=== PATIENT | male | born 1955 | race Caucasian/White ===

== ENCOUNTER 2024-03-11 09:47 | Outpatient (OUT) | payer OTHER, SELFPAY ==
--- NOTE | 2024-03-11 09:59 | XR_ITS ---
[address] [address] Patient Name: ANN STORY MRN: [id number] date: 1955 Sex: M Assigned Patient Location: [facility] Current Patient Location: [facility] Accession/Order Number: [id number] Exam Date: 03/11/2024 10:44 Report Date: 03/11/2024 12:47 At the request of: STEVEN ADORNO Procedure: XR chest 2V EXAMINATION: XR chest 2V HISTORY: Preop exam COMPARISON: No relevant comparison available. TECHNIQUE: PA and lateral FINDINGS: LUNGS: No significant pulmonary parenchymal abnormalities. VASCULATURE: No increased pulmonary vasculature. PLEURA: No pneumothorax, effusion, or pleural thickening. CARDIAC: No cardiomegaly or cardiac silhouette abnormality. MEDIASTINUM: No visible mass or adenopathy. Left pacemaker. Median sternotomy wires BONES: Mild degenerative disc disease and spondylosis without visible acute abnormalities. OTHER: Axillary surgical clips XR/XR chest 2V IMPRESSION: No acute cardiopulmonary process Electronically authenticated by: TEVIN VAUGHN Date: 03/11/2024 12:47
--- NOTE | 2024-03-11 09:59 | ECG_ITS ---
[facility] [place] Test Date: 2024-03-11 Pat Name: ANN STORY Department: Room: - Gender: Male [employer]: : 1955 Requested By: STEVEN ADORNO Order Number: [id number] Reading MD: ELISSA WILLIAM Measurements Intervals [place] Rate: 61 P: 180 IA: 240 QRS: -58 QRSD: 155 T: 123 QT: 385 QTc: 388 Interpretive Statements ELECTRONIC ATRIAL PACEMAKER MARKED LEFT AXIS DEVIATION [QRS AXIS < -30] INTRAVENTRICULAR CONDUCTION DELAY [130+ ms QRS DURATION] No previous ECG available for comparison Electronically Signed On 03-12-2024 7:40:03 EDT by ELISSA WILLIAM
--- NOTE | 2024-03-11 10:50 | P.GSHP_ITS ---
History of Present Illness History of Present Illness Chief complaint: elevated psa. prostate lesion Narrative: Patient presents for preadmission testing. The patient states he had an elevated PSA and is now scheduled for a prostate biopsy. The patient states he does have mild nocturia but denies any other urinary complaints and has no dysuria, hematuria, fever, abdominal pain, nausea, vomiting, or any other complaints. Despite a past medical history of RI x 2, CABG in 2001, and pacer/ICD insertion last year, the patient states he goes to the gym and works out every day and has no episodes of chest pain or dyspnea on exertion. Review of Systems ROS Narrative REVIEW OF SYSTEMS: Negative except as stated in HPI, ten or more systems reviewed. Constitutional: No fever, chills, weakness ENT: No sore throat or epistaxis Cardiovascular: No edema, chest pain, palpitations, or activity intolerance Respiratory: No shortness of breath, cough, or wheezing Musculoskeletal: No joint pain or swelling Gastrointestinal: No abdominal pain, constipation, diarrhea, or vomiting Genitourinary: No dysuria or hematuria Neurological: No numbness, tingling, weakness, or headache Psychiatric: No mood changes PFSH PFS Medical History (Updated 03/11/24 @ 10:26 by Amparo Contreras NP) Ischemic cardiomyopathy ?I25.5 - Ischemic cardiomyopathy (ICD-10) Knee pain ?M25.569 - Pain in unspecified knee (ICD-10) Osteoarthritis ?M19.90 - Unspecified osteoarthritis, unspecified site (ICD-10) Arthritis ?M19.90 - Unspecified osteoarthritis, unspecified site (ICD-10) ICD (implantable cardioverter-defibrillator) in place ?Z95.810 - Presence of automatic (implantable) cardiac defibrillator (ICD-10) COVID-19 ?U07.1 - COVID-19 (ICD-10) BPH (benign prostatic hyperplasia) ?N40.0 - Benign prostatic hyperplasia without lower urinary tract symptoms (ICD-10) Erectile dysfunction ?N52.9 - Male erectile dysfunction, unspecified (ICD-10) Melanoma ?C43.9 - Malignant melanoma of skin, unspecified (ICD-10) GERD (gastroesophageal reflux disease) ?K21.9 - Gastro-esophageal reflux disease without esophagitis (ICD-10) Hearing loss ?H91.90 - Unspecified hearing loss, unspecified ear (ICD-10) Myocardial infarction ?I21.9 - Acute myocardial infarction, unspecified (ICD-10) Hypertension ?I10 - Essential (primary) hypertension (ICD-10) High cholesterol ?E78.00 - Pure hypercholesterolemia, unspecified (ICD-10) Congestive heart failure ?I50.9 - Heart failure, unspecified (ICD-10) Diabetes ?E11.9 - Type 2 diabetes mellitus without complications (ICD-10) Prostate mass ?N42.89 - Other specified disorders of prostate (ICD-10) Elevated PSA ?R97.20 - Elevated prostate specific antigen [PSA] (ICD-10) Pacemaker ?Z95.0 - Presence of cardiac pacemaker (ICD-10) Surgical History (Updated 03/11/24 @ 10:26 by Amparo Contreras NP) Status post surgical removal of malignant neoplasm of skin ?Z98.890 - Other specified postprocedural states (ICD-10) Hx of CABG ?Z95.1 - Presence of aortocoronary bypass graft (ICD-10) History of colonoscopy ?Z98.890 - Other specified postprocedural states (ICD-10) History of arthroscopy of knee ?Z98.890 - Other specified postprocedural states (ICD-10) History of cholecystectomy ?Z90.49 - Acquired absence of other specified parts of digestive tract (ICD- 10) Social History (Updated 03/11/24 @ 10:16 by Amparo Contreras NP) Within the past year, how often did you have a drink containing alcohol: monthly or less Smoking status: Never smoker Non-prescribed substance use: denies use Highest level of school completed/degree received: high school graduate Meds Home Medications and Allergies Home Medications ?Medication ?Instructions ?Recorded ?Confirmed ?Type aspirin 81 mg tablet,delayed 81 mg PO DAILY 03/11/24 03/11/24 History release atorvastatin 40 mg tablet 40 mg PO DAILY 03/11/24 03/11/24 History captopril 12.5 mg tablet 12.5 mg PO Q8H 03/11/24 03/11/24 History cetirizine 10 mg tablet (Zyrtec) 10 mg PO DAILY 03/11/24 03/11/24 History cholecalciferol (vitamin D3) 50 2,000 unit PO DAILY 03/11/24 03/11/24 History mcg (2,000 unit) capsule empagliflozin 25 mg tablet 25 mg PO DAILY 03/11/24 03/11/24 History (Jardiance) ezetimibe 10 mg tablet 5 mg PO DAILY 03/11/24 03/11/24 History magnesium 250 mg tablet 250 mg PO DAILY 03/11/24 03/11/24 History metoprolol succinate 100 mg 100 mg PO DAILY 03/11/24 03/11/24 History tablet,extended release 24 hr multivitamin (Daily Multi-Vitamin 1 tab PO DAILY 03/11/24 03/11/24 History tablet) olive oil ea miscellaneous 03/11/24 History omega-3 fatty acids 500 mg PO DAILY 03/11/24 03/11/24 History omeprazole 20 mg capsule,delayed 20 mg PO DAILY 03/11/24 03/11/24 History release potassium gluconate 2.5 mEq tablet 2.5 meq PO DAILY 03/11/24 03/11/24 History spironolactone 25 mg tablet 25 mg PO DAILY 03/11/24 03/11/24 History super beta prostate advenced 03/11/24 History supplement Allergies Allergy/AdvReac Type Severity Reaction Status Date / Time diclofenac Allergy Rash Verified 03/11/24 10:15 Penicillins Allergy Unknown Verified 03/11/24 10:14 Sulfa (Sulfonamide Allergy Unknown Verified 03/11/24 10:14 Antibiotics) Exam Narrative Exam Narrative: Constitutional: Awake, alert, comfortable, well-appearing, nontoxic, interactive, vital signs as charted Head: Normocephalic, atraumatic Neck: Supple, normal appearance, normal range of motion, no meningeal signs, no lymphadenopathy Respiratory: No respiratory distress, breath sounds clear Cardiovascular: Regular rate and rhythm, strong and regular heart tones Abdomen: Nontender, normal bowel sounds, soft, no CVA tenderness Musculoskeletal: Normal gait, no swelling or edema Skin: No rashes or induration, no lesions, only visible skin inspected Neuro: No neurological deficits, normal sensation Psychiatric: Oriented ?3, normal affect Assessment and Plan Assessment and Plan (1) Prostate mass: (2) Elevated PSA: Plan Transrectal MRI guided prostate fusion biopsy scheduled with Dr. Tovar March 24, 2024.
[2024-03-11 10:51] LABS: Basophils Percent Auto 0.3 % (0.2-2.0); Eosinophils Absolute Auto 0.1 10^3/uL (0.0-0.7); Hematocrit 46.7 % (42.0-54.0); Hemoglobin 15.5 g/dL (14.0-18.0); Immature Granulocytes Abs Auto 0.02 10^3/uL (0.00-0.03); Immature Granulocytes Pct Auto 0.3 % (0.0-0.5); Lymphocytes Absolute Auto 1.8 10^3/uL (1.2-3.8); Lymphocytes Percent Auto 30.4 % (20.5-60.0); Mean Corpuscular HGB Conc 33.2 g/dL (29.9-35.2); Mean Corpuscular Hemoglobin 29.9 pg (25.9-34.0); Mean Platelet Volume 10.2 fL (9.5-13.5); Monocytes Absolute Auto 0.6 10^3/uL (0.3-0.8); Monocytes Percent Auto 10.2 % (1.7-12.0); Neutrophils Absolute Auto 3.3 10^3/uL (1.4-6.5); Neutrophils Percent Auto 56.8 % (43.0-75.0); Platelet Count 146 10^3/uL (150-450); Red Blood Count 5.19 10^6/uL (4.70-6.10); Red Cell Distribution Width 12.3 % (11.0-15.0); White Blood Count 5.9 10^3/uL (4.0-11.0)
[2024-03-11 11:16] LABS: INR 0.97; Partial Thromboplastin Time 26.8 sec (22.3-36.2); Prothrombin Time 10.3 sec (9.0-11.6)
[2024-03-11 11:39] LABS: Anion Gap 13.5; BUN Creatinine Ratio 14.4; Calcium 9.5 mg/dL (8.5-10.1); Carbon Dioxide 26.4 mmol/L (21.0-32.0); Chloride 104 mmol/L (98-107); Estimated GFR (African America >60 (>=60); Estimated GFR (Non-African Ame >60 (>=60); Glucose 94 mg/dL (74-106); Potassium 4.9 mmol/L (3.5-5.1); Sodium 139 mmol/L (136-145)
== END 2024-03-11 09:48 | disposition home or self-care (01) ==
LOC: PST 09:50
PROVIDERS: PCP Family Medicine; Visit Provider Urology
DX: Z01.810 Encounter for preprocedural cardiovascular examination (principal); Z01.812 Encounter for preprocedural laboratory examination; Z01.818 Encounter for other preprocedural examination; R97.20 Elevated prostate specific antigen [PSA]; D49.59 Neoplasm of unspecified behavior of other genitourinary organ
CPT/HCPCS: 36415; 71046; 80048; 85025; 85610; 85730; 93005; G0463

== ENCOUNTER 2024-03-24 08:57 | Day surgery (SDC) | payer OTHER, SELFPAY ==
[2024-03-11 10:39] VITALS: BP 122/68; PULSE 74; TEMP 36.3; O2SAT 97; BMI 31.4
[2024-03-24 09:14] VITALS: BP 114/70; PULSE 71; TEMP 36.1; O2SAT 97; BMI 31.0
[2024-03-24 09:16] LABS: Glucometer 98 mg/dL (74-106)
[2024-03-24] MEDS: LACTATED RINGER'S SOLUTION 1,000 ML 50 ML IV (09:32)
[2024-03-24] MEDS: CIPROFLOXACIN IN 5 % DEXTROSE 400 MG/200 ML PIGGYBACK 200 MG IV (09:32)
[2024-03-24] MEDS: LIDOCAINE 2% JELLY 20 ML UR (10:48)
[2024-03-24 11:10] VITALS: BP 91/41; PULSE 64; O2SAT 98
--- NOTE | 2024-03-24 11:11 | P.URON_ITS ---
Urology Surgery Operative Note Operative Note Procedure Date: 03/24/24 Time Out Performed: yes Pre-op Diagnosis: Elevated PSA and prostate lesion by MRI Post-op Diagnosis: same as pre-op Procedures performed: 1. Transrectal ultrasound of the prostate. 2. Prostate needle biopsies. Anesthesia: MAC and local Primary Surgeon: Major Tovar Complications: None Estimated blood loss (mL): 10 Findings: 1 lesion At the posterior right peripheral zone. Specimens: 5 biopsies from the area of interest sent separately. 6 biopsies from each side going from the base towards the apex divided up into 3 levels sent separately. Drains: None Indications for Procedures: This gentleman has an elevated PSA of 4.2. His prostate MRI revealed aPI-RADS 5 lesion at the right peripheral zone at the mid gland. He now presents forTransrectal ultrasound and prostate biopsies with MRI fusion guidance.He has signed an informed consent for these procedures after risks were explained. Some of these risks include bleeding, infection, urosepsis and anesthesia to name a few Detailed description of Procedure: The patient was brought to the operating room and placed on the morningside hospital bed in the supine position. He was rotated in the left lateral decubitus position. At this point we realized that he had a pacemaker and defibrillator installed and therefore we were unable to do the MRI fusion aspect of this prostate biopsy procedure safely. MAC anesthesia was then administered after timeout was done by all parties in the room.2% lidocaine gel was passed per rectum. The ultrasound probe From the navigo System was passed per rectum. While in the sagittal view we began taking biopsies From the area of interest switching back and forth from transverse to sagittal. 5 excellent biopsies were obtained and these were sent separately labeled area of interest. We then began taking biopsies from the left base going towards the apex. This was divided up into 3 levels and from each level a lateral and medial biopsy was taken. We then took similar mapped out biopsies from the right side going from the base towards the apex. These were also sent separately. The probe was then removed. He was then transferred to PACU in stable condition. He was warned about if he gets a fever near 101 and/or shaking chills that he needs to present to the emergency room for IV antibiotics.Also he was instructed to finish his oral antibiotic course.
[2024-03-24] MEDS: GENTAMICIN SULFATE 120 MG in 0.9 % SODIUM CHLORIDE 100 ML 206 MG IV (11:15)
[2024-03-24 11:24] VITALS: BP 94/42; PULSE 66; O2SAT 95
[2024-03-24 11:39] VITALS: BP 90/53; PULSE 70; O2SAT 94
[2024-03-24 11:52] VITALS: BP 110/69; PULSE 68; O2SAT 97
--- NOTE | 2024-03-24 11:55 | PC.NURSE ---
Up to bathroom and voids clear yellow without difficulty; no active rectal bleeding noted
== END 2024-03-24 11:58 | disposition home or self-care (01) ==
PROVIDERS: PCP Family Medicine; Visit Provider Urology
PROC: (CPT 902; principal; 2024-03-24 10:00)
DX: C61 Malignant neoplasm of prostate (principal); R97.20 Elevated prostate specific antigen [PSA]; Z95.810 Presence of automatic (implantable) cardiac defibrillator; R35.1 Nocturia; N40.1 Benign prostatic hyperplasia with lower urinary tract symptoms; R81 Glycosuria; Z95.1 Presence of aortocoronary bypass graft; E78.5 Hyperlipidemia, unspecified; I25.10 Atherosclerotic heart disease of native coronary artery without angina pectoris; I25.2 Old myocardial infarction; I50.9 Heart failure, unspecified; I11.0 Hypertensive heart disease with heart failure; K21.9 Gastro-esophageal reflux disease without esophagitis; M19.90 Unspecified osteoarthritis, unspecified site
CPT/HCPCS: 55700; 36415; 82948; 88305; J0744; J1580; J2250; J2371; J2704